=== PATIENT | female | born 1945 | race Caucasian/White ===

== ENCOUNTER 2021-04-08 06:29 | Observation (INO) ==
[2021-04-08] MEDS ORDERED: Acetaminophen 325 MG TABLET PO PRN (09:35)
[2021-04-08] MEDS ORDERED: Naloxone 0.4 MG/ML INJ IVP PRN (09:35)
[2021-04-08] MEDS ORDERED: Perflutren Lipid Microsphere 1.3 ML in 0.9 % Sodium Chloride 8.7 ML IVP PRN (09:54)
[2021-04-08] MEDS ORDERED: *HR* Heparin 5,000 UNIT/ML VIAL IVP PRN ×2 (10:04)
[2021-04-08] MEDS ORDERED: Heparin 25,000UNIT/250ML 1/2NS 25,000 UNIT/250 ML IV.SOLN IVC SCH ×2 (10:15→10:23)
[2021-04-08 11:57] LABS: Basophils % 0.4 %; Eosinophils # 0.1 K/mcL (0.0-0.6); Eosinophils % 1.3 %; Hematocrit 27.6 % (35.3-44.9); Hemoglobin 8.8 g/dL (11.5-15.4); Immature Granulocytes % 0.4 % (0-4); Lymphocytes # 1.4 K/mcL (0.6-4.6); Lymphocytes % 13.9 %; Mean Corpuscular HGB Conc 31.9 g/dL (31.6-35.5); Mean Corpuscular Volume 103.4 fL (83.0-100.0); Mean Platelet Volume 10.3 fL (9.4-12.4); Monocytes # 0.4 K/mcL (0.0-1.3); Monocytes % 4.2 %; Neutrophils # 7.9 K/mcL (1.6-8.9); Platelet Count 306 K/mcL (140-400); Red Blood Count 2.67 M/mcL (3.82-4.97); Red Cell Distribution Width 14.6 % (11.5-14.5); Segmented Neutrophils % 79.8 %; White Blood Count 9.8 K/mcL (4.3-11.1)
[2021-04-08 12:14] LABS: INR 1.1; Prothrombin Time 12.8 Seconds (9.4-12.1)
[2021-04-08 12:24] LABS: Troponin I 0.05 ng/mL (< 0.04)
[2021-04-08 13:00] LABS: Albumin 3.4 g/dL (3.5-5.7); Albumin/Globulin Ratio 1.1 (1.1-2.2); Bilirubin,Total 0.4 mg/dL (0.3-1.0); Calcium 8.6 mg/dL (8.6-10.3); Potassium 3.8 mEq/L (3.5-5.1); Total Protein 6.4 g/dL (6.4-8.9)
[2021-04-08 13:24] LABS: Activated Partial Thrombo Time 40.3 Seconds (26.0-36.0)
[2021-04-08] MEDS ORDERED: Melatonin 3 MG TABLET PO ONE (20:53)
[2021-04-09] MEDS: Furosemide 40 MG/4 ML VIAL IVP SCH (07:38)
[2021-04-09 09:06] LABS: Basophils # 0.1 K/mcL (0.0-0.2); Basophils % 0.7 %; Eosinophils # 0.2 K/mcL (0.0-0.6); Eosinophils % 2.1 %; Hematocrit 28.5 % (35.3-44.9); Immature Granulocytes % 0.3 % (0-4); Lymphocytes # 1.6 K/mcL (0.6-4.6); Lymphocytes % 15.9 %; Mean Corpuscular HGB Conc 31.6 g/dL (31.6-35.5); Mean Corpuscular Hemoglobin 32.3 pg (28.0-33.3); Mean Corpuscular Volume 102.2 fL (83.0-100.0); Mean Platelet Volume 10.1 fL (9.4-12.4); Monocytes # 0.6 K/mcL (0.0-1.3); Monocytes % 5.5 %; Neutrophils # 7.7 K/mcL (1.6-8.9); Platelet Count 338 K/mcL (140-400); Red Blood Count 2.79 M/mcL (3.82-4.97); Red Cell Distribution Width 14.6 % (11.5-14.5); Segmented Neutrophils % 75.5 %; White Blood Count 10.3 K/mcL (4.3-11.1)
[2021-04-09 09:24] LABS: Albumin 3.4 g/dL (3.5-5.7); Albumin/Globulin Ratio 1.1 (1.1-2.2); Bilirubin,Total 0.5 mg/dL (0.3-1.0); Calcium 8.9 mg/dL (8.6-10.3); Globulin 3.1 g/dL (2.4-3.5); Potassium 3.6 mEq/L (3.5-5.1); Total Protein 6.5 g/dL (6.4-8.9)
[2021-04-09] MEDS: carvediloL 6.25 MG TABLET PO SCH (16:48)
[2021-04-09] MEDS: *HR* Heparin 5,000 UNIT/ML VIAL SQ SCH (16:49)
[2021-04-09] MEDS: Budesonide/Formoterol 80/4.5 1 PUFF INH IH SCH (20:43)
[2021-04-09] MEDS ORDERED: QUEtiapine Fumarate 25 MG TABLET PO SCH (21:00)
[2021-04-09] MEDS ORDERED: Melatonin 3 MG TABLET PO SCH (21:00)
[2021-04-10] MEDS: Ondansetron 4 MG/2 ML VIAL IVP PRN ×2 (01:09→08:54)
[2021-04-10] MEDS: *HR* Heparin 5,000 UNIT/ML VIAL SQ SCH (05:49)
[2021-04-10 07:13] LABS: Calcium 8.5 mg/dL (8.6-10.3); Potassium 3.9 mEq/L (3.5-5.1)
[2021-04-10] MEDS: carvediloL 6.25 MG TABLET PO SCH (08:58)
[2021-04-10] MEDS: Furosemide 40 MG/4 ML VIAL IVP SCH (08:58)
[2021-04-10] MEDS ORDERED: Aspirin Enteric Coated 81 MG Tablet PO SCH (09:00)
[2021-04-10] MEDS ORDERED: Multivit/Ca/Min/Fe/FA 1 TAB TABLET PO SCH (09:00)
[2021-04-10] MEDS ORDERED: Tiotropium 10 INH DOSE IH SCH (10:00)
[2021-04-10 10:38] VITALS: PULSE 80; TEMP 97.9; O2SAT 96
[2021-04-10 11:12] VITALS: BP 104/70
[2021-04-10] MEDS: Budesonide/Formoterol 80/4.5 1 PUFF INH IH SCH (11:12)
== END 2021-04-10 14:00 | disposition home health service (06) ==
LOC: 2ANU → SUATTDRO 08:54
PROVIDERS: ADMIT Internal Medicine; ATTEND Family Medicine

== ENCOUNTER 2021-04-10 21:51 | Observation (INO) ==
[2021-04-11] MEDS ORDERED: Ondansetron 4 MG/2 ML VIAL IVP PRN (02:21)
[2021-04-11] MEDS ORDERED: Naloxone 0.4 MG/ML INJ IVP PRN (02:21)
[2021-04-11] MEDS ORDERED: 0.9 % Sodium Chloride 1,000 ML IVC SCH ×2 (02:30→06:02)
[2021-04-11 03:08] LABS: Basophils % 0.1 %; Hematocrit 22.2 % (35.3-44.9); Immature Granulocytes % 0.4 % (0-4); Lymphocytes # 0.6 K/mcL (0.6-4.6); Lymphocytes % 7.9 %; Mean Corpuscular HGB Conc 31.1 g/dL (31.6-35.5); Mean Corpuscular Hemoglobin 31.8 pg (28.0-33.3); Mean Corpuscular Volume 102.3 fL (83.0-100.0); Mean Platelet Volume 10.2 fL (9.4-12.4); Monocytes # 0.1 K/mcL (0.0-1.3); Monocytes % 1.4 %; Neutrophils # 6.5 K/mcL (1.6-8.9); Platelet Count 214 K/mcL (140-400); Red Blood Count 2.17 M/mcL (3.82-4.97); Red Cell Distribution Width 14.6 % (11.5-14.5); Segmented Neutrophils % 90.2 %; White Blood Count 7.2 K/mcL (4.3-11.1)
[2021-04-11 03:11] LABS: Hemoglobin 6.9 g/dL (11.5-15.4)
[2021-04-11 03:29] LABS: C-Reactive Protein 20 mg/L (Less than 10); Lactate Dehydrogenase 203 Units/L (140-271)
[2021-04-11 03:37] LABS: Albumin/Globulin Ratio 1.2 (1.1-2.2); Bilirubin,Total 0.4 mg/dL (0.3-1.0); Calcium 7.5 mg/dL (8.6-10.3); Globulin 2.6 g/dL (2.4-3.5); Magnesium 1.9 mg/dL (1.6-2.6); Phosphorous 3.8 mg/dL (2.7-4.5); Potassium 3.7 mEq/L (3.5-5.1); Total Protein 5.6 g/dL (6.4-8.9); Troponin I 0.62 ng/mL (< 0.04)
[2021-04-11 03:47] LABS: Ferritin 41 ng/mL (10-120)
[2021-04-11] MEDS ORDERED: 0.9 % Sodium Chloride 250 ML ONE (08:53)
[2021-04-11 11:22] LABS: Hematocrit 22.4 % (35.3-44.9); Hemoglobin 6.8 g/dL (11.5-15.4); Hemoglobin 6.9 g/dL (11.5-15.4)
[2021-04-11] MEDS ORDERED: Ipratropium/Albuterol Neb 3 ML IH PRN (17:18)
[2021-04-11 17:31] LABS: Hemoglobin 9.1 g/dL (11.5-15.4)
[2021-04-11] MEDS: Acetaminophen 325 MG TABLET PO PRN (20:24)
[2021-04-11 20:33] LABS: Hematocrit 29.8 % (35.3-44.9); Hemoglobin 9.4 g/dL (11.5-15.4)
[2021-04-11] MEDS: QUEtiapine Fumarate 25 MG TABLET PO SCH (23:34)
[2021-04-12 08:16] LABS: Hematocrit 28.9 % (35.3-44.9); Hemoglobin 8.9 g/dL (11.5-15.4); Mean Corpuscular HGB Conc 30.8 g/dL (31.6-35.5); Mean Corpuscular Hemoglobin 30.5 pg (28.0-33.3); Mean Platelet Volume 10.5 fL (9.4-12.4); Platelet Count 239 K/mcL (140-400); Red Blood Count 2.92 M/mcL (3.82-4.97); Red Cell Distribution Width 17.5 % (11.5-14.5); White Blood Count 6.3 K/mcL (4.3-11.1)
[2021-04-12 08:43] LABS: Potassium 4.1 mEq/L (3.5-5.1)
[2021-04-12] MEDS: Apixaban 5 MG TABLET PO SCH ×2 (14:33→20:25)
[2021-04-12] MEDS: dexAMETHasone 4 MG TABLET PO SCH (15:00)
[2021-04-12] MEDS: Ipratropium 1 PUFF INHALER IH SCH ×2 (16:13→19:50)
[2021-04-12] MEDS: carvediloL 6.25 MG TABLET PO SCH (17:52)
[2021-04-12 19:04] LABS: Bilirubin,Urine Negative (Negative); Blood,Urine Negative (Negative); Clarity,Urine Clear (Clear); Color,Urine Colorless (Yellow); Glucose,Urine (UA) Normal (Normal); Ketones,Urine Negative (Negative); Leukocyte Esterase,Urine Negative (Negative); Nitrite,Urine Negative (Negative); Protein,Urine Negative (Neg-Trace); Specific Gravity,Urine 1.007 (1.010-1.025); Urobilinogen,Urine Normal (Normal)
[2021-04-12] MEDS: Budesonide/Formoterol 80/4.5 1 PUFF INH IH SCH (19:50)
[2021-04-12] MEDS: QUEtiapine Fumarate 25 MG TABLET PO SCH (20:25)
[2021-04-12] MEDS: Acetaminophen 325 MG TABLET PO PRN (20:25)
[2021-04-13] MEDS: Ipratropium 1 PUFF INHALER IH SCH ×5 (00:02→15:01)
[2021-04-13 06:23] LABS: Hematocrit 29.9 % (35.3-44.9); Hemoglobin 9.5 g/dL (11.5-15.4); Mean Corpuscular HGB Conc 31.8 g/dL (31.6-35.5); Mean Corpuscular Hemoglobin 30.8 pg (28.0-33.3); Mean Corpuscular Volume 97.1 fL (83.0-100.0); Mean Platelet Volume 10.5 fL (9.4-12.4); Platelet Count 265 K/mcL (140-400); Red Blood Count 3.08 M/mcL (3.82-4.97); White Blood Count 3.7 K/mcL (4.3-11.1)
[2021-04-13 06:39] LABS: Calcium 8.3 mg/dL (8.6-10.3); Potassium 4.6 mEq/L (3.5-5.1)
[2021-04-13 06:40] LABS: Lactate Dehydrogenase 228 Units/L (140-271)
[2021-04-13 06:45] LABS: Fibrinogen 313 mg/dL (169-393)
[2021-04-13 06:53] LABS: Ferritin 43 ng/mL (10-120)
[2021-04-13 06:59] LABS: D-Dimer 1198 ng/mLFEU (0-500)
[2021-04-13] MEDS: Budesonide/Formoterol 80/4.5 1 PUFF INH IH SCH (07:56)
[2021-04-13 08:00] VITALS: BP 153/71; PULSE 85; TEMP 98.6
[2021-04-13] MEDS: Acetaminophen 325 MG TABLET PO PRN (08:21)
[2021-04-13] MEDS: dexAMETHasone 4 MG TABLET PO SCH (08:21)
[2021-04-13] MEDS: carvediloL 6.25 MG TABLET PO SCH (08:21)
[2021-04-13] MEDS: Apixaban 5 MG TABLET PO SCH (08:22)
[2021-04-13] MEDS ORDERED: Aspirin Enteric Coated 81 MG Tablet PO SCH (09:00)
[2021-04-13 11:44] LABS: C-Reactive Protein 6 mg/L (Less than 10)
[2021-04-13 16:17] VITALS: O2SAT 96
== END 2021-04-13 17:06 | disposition home health service (06) ==
LOC: 2NNU → SUATTDRO 04-11 01:00 → 2NENU 04-11 05:32
PROVIDERS: ADMIT Internal Medicine; ATTEND Family Medicine